=== PATIENT | female | born 1970 | race Caucasian/White ===

== ENCOUNTER 2021-09-02 16:13 | Emergency (ER) | payer OTHER ==
[~2021-09-02] VITALS: Ht 165.1 cm; Wt 97.5 kg
[2021-09-02 20:18] LABS: Basophils # (auto) 0 10 ^3/uL (0-0.2); Basophils % (auto) 0.5 % (0.0-2.0); Eosinophils # (auto) 0 10 ^3/uL (0-0.8); Eosinophils % (auto) 0.4 % (0.0-7.0); Hematocrit 44.6 % (36.0-46.0); Hemoglobin 15.3 g/dL (12.2-16.2); Lymphocytes # (auto) 2.8 10 ^3/uL (0.4-5.4); Lymphocytes % (auto) 27.6 % (10.0-50.0); Mean Corpuscular Hemoglobin 30.4 pg (28.0-32.0); Mean Corpuscular Hgb Conc. 34.4 g/dL (32.0-36.0); Mean Corpuscular Volume 88.4 fL (80.0-100.0); Monocytes # (auto) 0.6 10 ^3/uL (0-1.3); Monocytes % (auto) 5.6 % (0.0-12.0); Neutrophils # (auto) 6.7 10 ^3/uL (1.6-8.6); Neutrophils % (auto) 65.9 % (37.0-80.0); Nucleated Red Blood Cells % 0.1 %; Red Blood Cells 5.04 10^6/uL (4.0-5.20); Red Cell Distribution Width 13.1 % (11.8-14.3); White Blood Cell 10.2 10^3/uL (4.4-10.8)
[2021-09-02 20:43] LABS: Albumin 4.2 g/dL (3.4-5.0); Calcium 9.6 mg/dL (8.5-10.1); Magnesium 2.8 mg/dL (1.6-2.6); Potassium 4.4 mmol/L (3.5-5.1)
[2021-09-02 20:48] LABS: BUN/Creatinine Ratio 11.5; Bilirubin, Total 0.4 mg/dL (0.2-1.0); Total Protein 8.4 g/dL (6.4-8.2)
[2021-09-02 21:10] VITALS: BP 150/81
== END 2021-09-02 21:14 | disposition home or self-care (01) ==
LOC: ER 16:13
DX: R07.89 Other chest pain (principal); I48.91 Unspecified atrial fibrillation; Z90.89 Acquired absence of other organs; Z98.51 Tubal ligation status
CPT/HCPCS: 36415; 71046; 80053; 83735; 84443; 84484; 85025; 85379; 93005